=== PATIENT | male | born 1935 | race Caucasian/White ===

== ENCOUNTER → 2018-01-05 09:58 | Outpatient (CLI) | payer MEDICARE, OTHER, SELFPAY ==
[2018-01-05 10:53] LABS: Add Manual Diff / Slide Review NO; Basophils Percent Auto 0.3 % (0-2); Eosinophils Percent Auto 1.9 % (2-4); Hematocrit 43.8 % (41-53); Hemoglobin 14.4 g/dL (13.5-17.5); Lymphocytes Percent Auto 17.9 % (25-40); Mean Corpuscular Hemoglobin 30.9 PG (26-34); Mean Corpuscular Volume 93.8 fL (80-100); Monocytes Percent Auto 7.7 % (3-14); Neutrophils Absolute Auto 5800 /uL (3000-5900); Neutrophils Percent Auto 72.2 % (50-75); Platelet Count 226 X10^3/uL (150-400); Red Blood Cell Count 4.67 X10^6/uL (4.5-5.9); Red Cell Distribution Width 15.1 % (11.6-14.8); White Blood Cell Count 8.1 X10^3/uL (4.5-11.0)
[2018-01-05 11:15] LABS: Erythrocyte Sedimentation Rate 5 MM/HR (0-15)
[2018-01-05 11:18] LABS: C-Reactive Protein Quant 0.9 mg/dL (<1.0)
== END ==
PROVIDERS: PCP Family Medicine; Visit Provider Orthopaedic Surgery
DX: Z96.652 Presence of left artificial knee joint (principal)
CPT/HCPCS: 36415; 85025; 85651; 86140

== ENCOUNTER → 2018-01-15 10:25 | Outpatient (CLI) | payer MEDICARE, OTHER, SELFPAY | PROVIDERS: PCP Family Medicine; Visit Provider Orthopaedic Surgery | DX: M25.562 Pain in left knee (principal); Z53.9 Procedure and treatment not carried out, unspecified reason ==

== ENCOUNTER → 2018-01-21 08:51 | Outpatient (CLI) | payer MEDICARE, OTHER, SELFPAY ==
--- NOTE | 2018-01-21 | DI.NM.S_ITS ---
PROCEDURE: NM BONE 3 PHASE RADIOPHARMACEUTICAL: 21.2 mCi Tc-99m MDP IV. INDICATIONS: PAIN IN LEFT KNEE TECHNIQUE: Multiple bone scintigrams were obtained after intravenous injection of Tc-99m MDP, including flow, blood pool, and delayed images centered to the region of interest. COMPARISON: [facility], CR, XR KNEE ARTHRITIC SERIES LT, 06/23/2017, 14:51. [facility] [place], CR, XR KNEE ARTHRITIC SERIES LT, 04/07/2017, 12:58. [facility], CR, KNEE 1-2 VIEWS LEFT, 02/26/2017, 13:58. [facility], CR, XR KNEE ARTHRITIC SERIES LT, 12/26/2017, 13:31. FINDINGS: Photopenic defect related to left knee arthroplasty. Along the tibial tray component, and most prominently involving the medial aspect there is increased tracer activity seen on the immediate, blood pool and delayed phase imaging. Elsewhere in there is possible triple phase positive appearance involving the lateral aspect of the proximal tibial metaphysis although this is less conspicuous on the delayed phase imaging. IMPRESSION: Scintigraphic appearance raises the possibility of hardware loosening or infection in particular at the medial hardware-bone interface of the tibial component of the left knee arthroplasty. Please correlate clinically. In this area on comparison radiographs there appears to be slight progressive lucency at the hardware bone interface Dictated by: Sedrick Asencio M.D. on 01/21/2018 at 14:06 Approved by: Sedrick Asencio M.D. on 01/21/2018 at 14:16
== END ==
PROVIDERS: PCP Internal Medicine; Visit Provider Orthopaedic Surgery
DX: M25.562 Pain in left knee (principal); Z96.652 Presence of left artificial knee joint
CPT/HCPCS: 78315; A9503

== ENCOUNTER 2018-03-04 11:18 | Inpatient (IN) | payer MEDICARE, OTHER, SELFPAY ==
[2018-02-23 09:57] VITALS: BMI 33.3
[2018-03-04] VITALS (15 sets, daily range): BP systolic 103–169; BP diastolic 52–111; PULSE 73–104; RESP 12–20; TEMP 36.3–37.6; O2SAT 94–100; BMI 33.3
--- NOTE | 2018-03-04 11:35 | DI.RAD.S_ITS ---
PROCEDURE: XR KNEE LT 1TO2V INDICATIONS: post op films TECHNIQUE: 2 view(s) of the knee acquired. COMPARISON: [facility] [place], XR KNEE ARTHRITIC SERIES LT, 12/26/2017, 13:31. FINDINGS: Bones: Patient is status post knee joint arthroplasty. Hardware components are in expected positions. Visualized bony structures are intact. Soft tissues: Overlying postoperative changes are noted. IMPRESSION: Left total knee arthroplasty. Normal alignment established. Prior arthroplasty device removed. Dictated by: Delon Cage M.D. on 03/04/2018 at 19:45 Approved by: Delon Cage M.D. on 03/04/2018 at 19:46
[2018-03-04] MEDS: LACTATED RINGERS 1,000 ML 42 ML IV (12:24)
[2018-03-04] MEDS: ACETAMINOPHEN 325 MG TABLET 975 MG PO ×2 (12:24→22:55)
[2018-03-04] MEDS: PREGABALIN 75 MG CAPSULE PO (12:25)
[2018-03-04] MEDS: MELOXICAM 7.5 MG TABLET 15 MG PO (12:25)
[2018-03-04 12:43] LABS: Creatine Kinase 89 U/L (55-170)
[2018-03-04] MEDS: VANCOMYCIN 1,000 MG/200 ML FROZ.PIGGY 200 MG IV (12:46)
--- NOTE | 2018-03-04 12:53 | PM.PREOP ---
Pre-operative Note Interval Note History & Physical reviewed/Exam performed by Physician: Yes Changes to H&P: No
--- NOTE | 2018-03-04 12:54 | PM.OP.1 ---
Operative Date/Time/Diagnoses Date of procedure: 03/04/18 Time of procedure: 17:23 Pre-op diagnosis: Loosening of left total knee arthroplasty Post-op diagnosis: same Procedure & Clinicians Procedure: Revision left total knee arthroplasty Same procedure as scheduled: Yes Indications: The patient presents today for revision of left total knee arthroplasty. His initial knee was placed a little over 1 year ago. He started having pain about 3-4 months after surgery which has progressed over time. X-rays and bone scan show loosening of both the femoral and tibial components. Laboratory studies show no evidence of infection. The nature of the procedure including the risks and benefits, alternatives, postoperative course and expected outcome were discussed and all questions answered. Consent was obtained. Operative site confirmed and marked. Surgeon: Edwin Valdivia Tissue Specialist: Ari Allen Anesthesia Type: General, Spinal and Local Operative Notes Findings: There was no fluid within the knee upon initial exposure. No evidence of inflammation or infection. The patient's tibial component was clearly loose. I believe the femoral component was also loose based on preoperative studies but did not appear to be grossly loose when removed. I was able to remove both components with essentially no bone loss. The patellar component was also noted to be loose as some soft tissue was cleared around. There is still about 16 mm of patella so 2 more mm was cut and a new patellar components cemented into place. Closure Type: primary Specimen(s): other (Previous knee components and cultures x2.) Implants & Drains: [employer] [facility] revision system: 5 femur with 5 mm posterior medial and lateral augments and a 15 mm x 120 mm stem and 4 mm offset. For tibia with a 12 mm x 160 mm stem and 4 mm offset. 13 mm constrained polyethylene tray. 35 mm x 9 mm patella. Applied: implant(s) Estimated Blood Loss (mL): 50 Tourniquet time (min): 70 Procedure in detail: The patient was taken to the operative suite and placed under general anesthesia with a spinal. The patient was given prophylactic antibiotics prior to surgery. The patient was also given tranexamic acid, 1 g, just prior to surgery for postoperative hemostasis. The lateral knee was prepped and the joint injected with 20 mL of 1% Lidocaine with epinephrine. The knee was then prepped and draped in usual sterile fashion. The leg was exsanguinated with an Esmarch dressing and the tourniquet raised to 250 torr. A 20 cm anterior incision was made using a previous incision. Next a medial trivector arthrotomy was made. The extensor mechanism was marked to ensure accurate repair. There was no fluid in the knee joint. No evidence of inflammation or infection. Initial exposing dissection was carried out medially and laterally. The polyethylene tray was removed. The femoral component was removed 1st using osteotomes. I did not see evidence of gross loosening but the component was relatively easy to remove with no bone loss. Next the tibial component was removed also using osteotomes. The tibial component was clearly loose as very little effort was needed to remove the component. No significant bone loss. The tibial shaft was reamed up to a size 12 and the neck cut made on the proximal tibia removing about 4 more mm of bone. The patient had almost no bone loss. The tibia was then prepared for size for component using a 4 mm offset social science professor. Next the femoral shaft was reamed. I could not get the required depth with even the smallest Reamer for the desired stem. In reviewing his x-rays it looked like there was some subtle step-off from a previous fracture in the cortex significantly narrowed. It was decided to go with a 120 mm stem on the femur. Full femoral preparation was carried out for a size 5 femur. It was cut posteriorly for 5 mm augments both medially and laterally. Only a 1.5 mm fresh up cut was needed distally. The trials were placed in the knee range. There is a little increased medial laxity compared to laterally but overall the knee had good balance with a 13 mm constrained polyethylene tray. At this point some scar tissue was cleaned off the tibial component and the tibia was noted to be loose. The tibia was 16 mm thick so no other 2 mm could be removed. The tibia was prepared with 3 drill holes placed in a different area than the previous drill holes. The knee was then copiously irrigated with total of 6 L of orthopedic irrigation. The knee was also soaked with a dilute Betadine solution. The final components were placed with vacuum mixed antibiotic cement. The tibia was placed 1st without incident. As the femur was placed down was then noted that it did not seem to seat as far as the trial. Even with a large mallet the femur still seemed to be 1-2 mm proud. The trial component did have a very tight fit. At this point the cement had essentially hardened. When the knee was ranged and seemed to have the same balance in extension as a 2 with the trial. It was felt that this was acceptable amount of cement mantle as it would require essentially revision of the femoral component as the cement had dried by this point. The knee was held in extension and the patellar clamp until the cement was fully cured. Trial reduction was then performed and again a 13 mm constrained liner was selected. The patient came into full extension easily and flexed to 130? with good overall balance. Patellar tracking was excellent. The knee was held in extension and the patellar clamp until the cement had adequately cured. The knee was irrigated and inspected for any further debris. The knee was then irrigated with dilute Betadine solution. The extensor mechanism was closed with 5 interrupted #1 Vicryl sutures in 90 degrees of flexion. The joint was then injected with a combination of 1 g of tranexamic acid and 20 mL of quarter percent Marcaine with epinephrine. The subcutaneous tissue was closed with 2-0 Vicryl. The skin was closed with semaj and surgical adhesive. A Willie dressing and Marty wrap were then applied. The patient tolerated the procedure well and was returned to recovery room in good condition. Complications: none Condition: stable Disposition: PACU Plan for aftercare: Routine postoperative protocol for total knee arthroplasty. His furnace hand has recommended daily EKGs and troponin levels for the 1st 2 days after surgery. He will continue on IV vancomycin until cultures are clear.
[2018-03-04 12:57] LABS: Troponin I < 0.012 ng/mL (0.01-0.034)
--- NOTE | 2018-03-04 13:12 | SUR.OPER ---
Supine on padded OR bed. Pillow under head, arms secured on padded armboards <90 degree abduction. Safety belt across torso. Non-operative leg secured with tape over blanket over lower leg. Operative leg secured in DeMayo/Elijah positioner. Foam padded brace at thigh of operative leg.
[2018-03-04] MEDS: CLINDAMYCIN 900 MG/50 ML PIGGYBACK 50 MG IV (13:50)
[2018-03-04] MEDS: TRANEXAMIC ACID 1,000 MG VIAL 1000 MG INJ ×2 (14:33→14:36)
[2018-03-04] MEDS: BUPIVACAINE 0.5% W/ EPI (PF) 20 ML, BUPIVACAINE LIPOSOME 266 MG, SODIUM CHLORIDE 0.9% 2... INJ (14:35)
[2018-03-04] MEDS: ONDANSETRON 4 MG/2 ML INJ IV (19:30)
[2018-03-04 19:57] LABS: Estimated Glomerular Filt Rate 52.9 mL/min (>60)
[2018-03-04] MEDS: LACTATED RINGERS 1,000 ML 125 ML IV (20:35)
--- NOTE | 2018-03-04 20:55 | PC.NURSE ---
Addendum entered by Roseanne Morfin R.N. 03/05/18 00:09: 2230- immediately (less than 1 min) after admin all pt's medications, pt had 250mL emesis, clear yellow, without any pills in bag. Pt using I.S. since 194, and reaching [id number] level. Original Note: 1844- Pt arrived to room 230 via PACU via bed. A/O x3, left knee MUKUND drsg CDI, green light flashing, ice packs on knee, CMS-pedal pulses +, remains with numbness up to mid thigh, able to wiggle toes and ankle pumps. Pt had emesis 125 clear yellow liquid @ 1999, and again 100mL clear yellow emesis @ 2030mL. Pt's belongings were not brought up with pt, when PACU brought him up. Isaias Arevalo, RN coordinator retrieved them in PACU and brought them up pt's room. LR infusing to left wrist @ 125. Sating form 93-96% 2.5L nc, LS clear, denies SOB. Placed brief on pt for bladder inc. Ice chips and water at bedside. Call light in reach and bed alarm on.
[2018-03-04] MEDS: ROPINIROLE 0.25 MG TABLET PO (22:56)
[2018-03-04] MEDS: ATORVASTATIN 20 MG TABLET PO (22:56)
[2018-03-04] MEDS: METFORMIN HCL 500 MG TABLET 250 MG PO (22:56)
[2018-03-04] MEDS: ASPIRIN EC 81 MG TABLET PO (22:56)
[2018-03-04] MEDS: LORazepam 1 MG TABLET PO (22:56)
[2018-03-05] VITALS (8 sets, daily range): BP systolic 110–120; BP diastolic 53–86; PULSE 99–110; RESP 15–20; TEMP 36.5–37.2; O2SAT 90–98
[2018-03-05] MEDS: LACTATED RINGERS 1,000 ML 125 ML IV (04:26)
[2018-03-05] MEDS: VANCOMYCIN 1,000 MG/200 ML FROZ.PIGGY 200 MG IV (06:00)
[2018-03-05] MEDS: OXYCODONE IR 5 MG TABLET PO ×4 (06:14→15:45)
[2018-03-05] MEDS: PANTOPRAZOLE 20 MG TABLET PO (06:14)
--- NOTE | 2018-03-05 06:29 | PC.NURSE ---
pt unable to urinate. he does have the urge to go. 0630 bladder scan 295cc. medicated pt w/oxycodone 5mg. pt ambulated to the BSC 2pa. call light in reach. bed alarm active.
--- NOTE | 2018-03-05 09:14 | CM.DPC ---
Referral faxed to Jorge Szymanski
[2018-03-05] MEDS: ASPIRIN EC 81 MG TABLET PO ×2 (09:24→20:17)
[2018-03-05] MEDS: METFORMIN HCL 500 MG TABLET 250 MG PO (09:24)
[2018-03-05] MEDS: ALLOPURINOL 100 MG TABLET PO (09:24)
[2018-03-05] MEDS: ACETAMINOPHEN 325 MG TABLET 975 MG PO ×3 (09:26→20:17)
[2018-03-05] MEDS: ROPINIROLE 0.25 MG TABLET PO ×2 (09:30→20:16)
[2018-03-05 10:24] LABS: Hematocrit 37.2 % (41-53); Hemoglobin 12.1 g/dL (13.5-17.5)
[2018-03-05 10:35] LABS: Creatine Kinase 135 U/L (55-170)
[2018-03-05 10:50] LABS: CKMB % Relative Index 1.8 % (1.5-5.0)
--- NOTE | 2018-03-05 11:15 | PM.PNPO.1 ---
Subjective Date Patient Seen: 03/05/18 Time Patient Seen: 11:16 Interval history: Patient's pain is mild at rest. Patient notes more moderate pain with activity and movement of the left knee. Denies fever chills. No nausea vomiting. He denies any shortness of breath or chest pain. Exam Vital Signs (past 8 hours): - 03/05/18 03:30 03/05/18 08:29 Temperature 98.9 F 97.7 F Pulse Rate 100 H 104 H Respiratory Rate 15 20 Blood Pressure 118/69 114/57 L Pulse Oximetry 98 94 Oxygen Delivery Method Nasal Cannula Oxygen Flow Rate 0 Narrative Exam Narrative: Pleasant 82-year-old male resting comfortably in bed in no apparent distress. Willie dressing on and functioning. Dressing is clean, dry and intact. Neurovascular status is intact to the distal left lower extremity. Objective Labs Result Diagrams: 03/05/18 07:00 03/04/18 19:27 Labs: Laboratory Results - last 24 hr 03/04/18 03/04/18 03/05/18 11:35 19:27 07:00 Hgb 12.1 L Hct 37.2 L Creatinine 1.30 H Estimated GFR 52.9 L Total Creatine Kinase 89 CK-MB (CK-2) TNP CK-MB (CK-2) Rel Index TNP Troponin I < 0.012 03/05/18 07:00 Hgb Hct Creatinine Estimated GFR Total Creatine Kinase 135 CK-MB (CK-2) 2.40 H CK-MB (CK-2) Rel Index 1.8 Troponin I Assessment & Plan Post-op Postoperative Procedures Operation Date: 03/04/18 13:15 Actual Procedures Side Surgeon p Total Knee Arthroplasty Revision Left Edwin Valdivia MD Patient progressing as expected status post revision left total knee arthroplasty. Weightbearing as tolerated. Patient's gun mechanic is recommended serial EKG and troponins well in the hospital or next to 3 days. With patient's complex cardiac history and diabetes will have hospitalist consult on the patient to assist in medical management of this patient. Patient's is home but will not be able to assist with patient because her own medical issues. Likely discharge to correction facility in 2 days. Quality VTE Deep Vein Thrombosis/Pulmonary Embolism Present on Admission: No
--- NOTE | 2018-03-05 11:18 | P.PN_ITS ---
Subjective Date Patient Seen: 03/05/18 Time Patient Seen: 11:16 Interval history: Patient's pain is mild at rest. Patient notes more moderate pain with activity and movement of the left knee. Denies fever chills. No nausea vomiting. He denies any shortness of breath or chest pain. Exam Vital Signs (past 8 hours): - 03/05/18 03:30 03/05/18 08:29 Temperature 98.9 F 97.7 F Pulse Rate 100 H 104 H Respiratory Rate 15 20 Blood Pressure 118/69 114/57 L Pulse Oximetry 98 94 Oxygen Delivery Method Nasal Cannula Oxygen Flow Rate 0 Narrative Exam Narrative: Pleasant 82-year-old male resting comfortably in bed in no apparent distress. Willie dressing on and functioning. Dressing is clean, dry and intact. Neurovascular status is intact to the distal left lower extremity. Objective Labs Result Diagrams: 03/05/18 07:00 03/04/18 19:27 Labs: Laboratory Results - last 24 hr 03/04/18 03/04/18 03/05/18 11:35 19:27 07:00 Hgb 12.1 L Hct 37.2 L Creatinine 1.30 H Estimated GFR 52.9 L Total Creatine Kinase 89 CK-MB (CK-2) TNP CK-MB (CK-2) Rel Index TNP Troponin I < 0.012 03/05/18 07:00 Hgb Hct Creatinine Estimated GFR Total Creatine Kinase 135 CK-MB (CK-2) 2.40 H CK-MB (CK-2) Rel Index 1.8 Troponin I Assessment & Plan Post-op Postoperative Procedures Operation Date: 03/04/18 13:15 Actual Procedures Side Surgeon p Total Knee Arthroplasty Revision Left Edwin Valdivia MD Patient progressing as expected status post revision left total knee arthroplasty. Weightbearing as tolerated. Patient's financial investigator is recommended serial EKG and troponins well in the hospital or next to 3 days. With patient's complex cardiac history and diabetes will have hospitalist consult on the patient to assist in medical management of this patient. Patient's is home but will not be able to assist with patient because her own medical issues. Likely discharge to retirement facility in 2 days. Quality VTE Deep Vein Thrombosis/Pulmonary Embolism Present on Admission: No
[2018-03-05 11:33] LABS: Troponin I < 0.012 ng/mL (0.01-0.034)
[2018-03-05] MEDS: INSULIN ASPART 100 UNIT/ML INSULN PEN SUBCUT ×3 (11:44→22:12)
--- NOTE | 2018-03-05 12:09 | PT.IIE ---
Current Diagnoses Mechanical loosening of other internal prosthetic joint, initial encounter (03/04/18) Presence of left artificial knee joint (03/04/18) Surgery Performed Operation Date: 03/04/18 13:15 Actual Procedures p Total Knee Arthroplasty Revision(Left) - Edwin Valdivia MD Surgical History (Last Updated 02/23/18 @ 10:54 by Marjan Newman RN) History of arthroplasty of left knee (Acute 02/26/17) History of lumbar fusion (Acute ~2015) History of vasectomy (Acute) Hx of elbow surgery (Acute) Hx of hernia repair (Acute) Hx of left knee surgery (Acute) Status post cataract extraction of both eyes with insertion of intraocular lens (Acute) Medical History (Last Updated 02/23/18 @ 10:54 by Marjan Newman RN) Anal fissure (Acute) Anxiety (Acute) Asthma (Acute) CVA (cerebral vascular accident) (Acute) Depression (Acute) Difficulty balancing (Acute) Dizziness (Acute) Easy bruisability (Acute) Fragile skin (Acute) GERD (gastroesophageal reflux disease) (Acute) Gout (Acute) [place] (hard of hearing) (Acute) HTN (hypertension) (Acute) History of agent [place] exposure (Acute) History of fall (Acute) Hyperlipidemia (Acute) Lung abnormality (Acute) Memory difficulties (Acute) Myocardial infarction (Acute ~1980) Osteoarthritis (Acute) PTSD (post-traumatic stress disorder) (Acute) Parkinson's disease (Acute) Peripheral neuropathy (Acute) RLS (restless legs syndrome) (Acute) TIA (transient ischemic attack) (Acute) Urinary incontinence (Acute) Physical Therapy Inpatient Evaluation/Re-Eval M1 PT/OT-IP Prior Functional Status Start: 03/05/18 11:41 Freq: NEEDED Status: Active Protocol: Document 03/05/18 09:50 (Rec: 03/05/18 12:08 [email or web address]) Medical Review Prior Functional Status Medical History Reviewed Yes Diet/Fluid Consistency Regular Communication no deficits noted Mobility and Gait independent ambulator with quad cane at home and community Activities of Daily Living and IADL's Pt is independent for most ADLs and IADLs with quad cane, but he needs help from his for cooking gardening. Social History Household Members spouse Living Arrangements House Number of Floors (Floors) One Floor Number of Stairs To Enter/Railing? 1 ROXANNA Home Environment Standard Height Toilet Walk in Shower Tub/Shower Doors Ramp Home Equipment Quad Cane Manual Wheelchair Hand Held Shower Grab Bars Near Toilet Grab Bars In Shower Employment Status Retired Additional Social History Comment Pt lives with his in a one story home who is CG for the patient. She usually helps pt to cook and gardening work . Pt states his is independent for all ADLs and IADLs, but she does have chronic medical conditions such as OA and RA primarily on her hands. Pt reports he is planning to d/c [facility] for further rehab due to his 's ability for being CG after this surgery. M2 PT-IP Current Condition Start: 03/05/18 11:41 Freq: NEEDED Status: Active Protocol: Document 03/05/18 09:50 HH (Rec: 03/05/18 12:08 [email or web address]) Physical Therapy Current Condition Current Condition Evaluation Date 03/05/18 Treatment Diagnosis L revision TKA; difficulty in walking, generalized weakness Onset Date 03/04/18 Weight Bearing Status Weight Bearing Status Weight Bear as Tolerated M3 PT-IP Subjective Start: 03/05/18 11:41 Freq: NEEDED Status: Active Protocol: Document 03/05/18 09:50 HH (Rec: 03/05/18 12:08 [email or web address]) Subjective Physical Therapy Visit Type Type Initial Evaluation Visit Start Time 09:50 Visit Stop Time 10:30 Total Visit Minutes 40 Number of PIPELINE OPERATOR Visits 0 Physical Therapy Visit Comments Patient Comments I have knee pain at rest 2/10 , but 8/10 when i put weight on it. I've been getting OOB with the help from nursing staff but it was quite painful to walk around. Patient Goals to be d/c to [facility] for further rehab to use commode for toileting to amb 300 feet with FWW Therapy Pain Assessment Pain When Pain Assessed During Mobility Pain Present Pain Present Pain Reported Location Left Knee Intensity 5 Scale Used Numeric (1 - 10) Description Dull Pain Management Techniques Apply Cold Timing of Activity with Medications M4 PT-IP Mobility and Gait Start: 03/05/18 11:41 Freq: NEEDED Status: Active Protocol: Document 03/05/18 09:50 HH (Rec: 03/05/18 12:08 [email or web address]) PT-Bed Mobility Assessment Supine to Sit Supine to Sit Standby Assistance Bedrails Sit to Supine Sit to Supine Standby Assistance Bedrails Scooting Scooting to Edge of Bed Standby Assistance Scooting Up and Down in Bed Standby Assistance PT-Transfer Assessment Sit to and From Stand Sit to and from Stand Contact Guard Assistance Use of Upper Extremities Equipment Transfer Assistive Device Bed Rail Gait Belt Front Wheeled Walker Transfers Transfer Destination Bed Chair Transfer Technique Stand Step Pivot Transfer Ability Level of Assist Contact Guard Assistance Comments Mobility Comments Pt performed supine to sit towards EOB; forward scooting; lateral scooting with SBA and bed rails for push off. Pt requires CGA for sit to stand, stand step pivot transfer. Pt does need v.c. hand placements on chair during stand to sit. Overall, pt demonstrates safe transfer with the use FWW and bedrails without signs of LOB and acute distress. Gait Assessment Gait Gait Assistance Required: Contact Guard Assist Distance (Feet) 100 Assistive Devices Assistive Device Gait Belt Front Wheeled Walker Gait Deviations General Gait Pattern Antalgic Decreased Stride Length Decreased Feet Clearance Factors Limiting Gait Function Factors Limiting Gait Function Decreased Activity Tolerance Decreased Sensation Decreased Strength Limited Range of Motion Pain Comments Gait Comments Pt amb between EOB to next two patients room 50 feet x 2 in total with CGA and FWW. Pt demonstrates insufficient TKE during initial contact who also has a forefoot foot strike. Pt also presents mild antalgic gait on left side due to knee pain. Pt requires constant v.c. to faciltiate L TKE and heel strikes to reduced patellofemoral stress by utilizing posterior chain activation. Pt juani gait training well without signs of LOB and acute distress. PT-Balance Assessment Sitting Balance and Reactions Static Sitting Balance Ability Normal Dynamic Sitting Balance Ability Normal Standing Balance and Reactions Static Standing Balance Ability Good Dynamic Standing Balance Ability Good M5 PT-IP Objective Assessments Start: 03/05/18 11:41 Freq: NEEDED Status: Active Protocol: Document 03/05/18 09:50 (Rec: 03/05/18 12:08 [email or web address]) Orientation Orientation/Cognition Level of Alertness Alert Orientation Name Age Birthday Month Date Year Day of Week Place Situation Language Function Ability No Deficits Noted Safety Awareness Understands Safety Issues Memory Description No Deficits Noted Gross Range of Motion Upper Extremity ROM Assessment Within Functional Limits Lower Extremity ROM Assessment Right Impaired Impairments R knee flexion AROM 90 R knee extension - 5 degrees Strength Upper Extremity Strength Assessment Within Functional Limits Lower Extremity Strength Assessment Right Impaired Hip 4 Knee 3+ Ankle 4 Coordination Assessment Gross Coordination Gross Coordination WNL Sensation Assessment Sensation Gross Sensation Right LE Impaired Sensation Description Tingling M6 PT-IP Treatment Start: 03/05/18 11:41 Freq: NEEDED Status: Active Protocol: Document 03/05/18 09:50 HH (Rec: 03/05/18 12:08 HH [email or web address]) Physical Therapy Treatment Exercises Exercises Ankle Pumps Gluteal Sets Quad Sets Heel Slides Knee ROM Measurement 90 flexion, -5 extension Education Education Provided Precautions Weight Bearing Status Post-Op Packet Safety Other Treatments Other Treatment Performed standing L TKE with FWW M7 PT-IP Assessment and Plan Start: 03/05/18 11:41 Freq: NEEDED Status: Active Protocol: Document 03/05/18 09:50 HH (Rec: 03/05/18 12:08 [email or web address]) PT Summary Assessment and Plan Potential Rehabilitation Potential Good Status of Condition at Evaluation Evolving Summary Impairments Pain ROM Strength Balance Sensation Transfers Gait Activity Tolerance Assessment Summary Pt is a 82 yo pleasant male who had L TKA on 02/26/17. Pt reports his pain didnt go away due to loosening of femoral and tibial components per MD report. Pt decided to receive revision L TKA yesterday and is now WBAT. Upon assessment, pt presents diffculty in walking with decreased stride length and feet clearance. However, pt reports his pain went down to 5 throughout the tx session and he was able to amb up to 100 feet today. Pt expects to transfer to [facility] for further rehab due to his current condition and previous failed surgical hx. Pt will cont require skilled PT in at this point to stabilize his pain and address his functional goals prior to d/c. Goals Bed Mobility Goal Independent Transfer Goal Standby Assistance Gait Goal Standby Assistance Gait Distance 200 Days to Meet Goals 3 Frequency of Treatment Frequency Of Treatment Twice a Day Treatment Plan Physical Therapy Treatment Plan Transfer Training Gait Training Therapeutic Exercise Balance Retraining Post Op Education Discharge Planning Hot or Cold Pack Neuromuscular Re-ed Other Recommendations and Next Treatment L TKE, knee flexion as Focus tolerated gait training as tolerated, encourage L heel strikes and TKE Recommendations To Nursing Amount of Assist Needed 1 Person Assist Discharge Recommendations PT Discharge Recommendations SNF Rehab
--- NOTE | 2018-03-05 12:23 | CM.DANOTE ---
Addendum entered by FABIOLA Bolton 03/05/18 13:37: SNF/cont [facility] called and they will be able to accept patient when/if medically appropriate. Faxed [facility] to [facility]. 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 Yes Advance Directives on File Yes History Provided By Patient Medical Record Prior Living Arrangements House Household Members spouse Type of transporation used prior to Drives own vehicle admit Independent with ADL's Yes Is patient alert and oriented? Yes DME Already Rented / Owned Cane Patient/Family Preference Care Home Facility Comment Patient toured SNF/[facility] prior to surgery. Discharge Plan Care Home Facility Referrals Initiated Care Home If patient plan is SNF: Has PASSR been Yes completed? Inpatient Status as of 03/04/18 Comment IP date confirmed with UR. SNF/HH Preference [facility]. Patient had selected this facility prior to admission. Has Agency SNF been contacted Yes Whiteboard Updated in Patient Room with Yes name and ext. # of Barrel Loader And Cleaner Please Provide Date Initial DC 03/05/18 Assessment Was Performed Next Review Type Continued Stay Review Pre-Anesthesia Assessment Start: 02/23/18 09:57 Freq: Status: Complete Protocol: Document 02/23/18 09:57 CAB (Rec: 02/23/18 11:02 CAB [id number]) Pre-Anesthesia Assessment Patient Also Known As (AKA) Bill Patient Information Reviewed Via Phone Assessment Assessment Completed With Patient H&P Completed Within 30 Days Yes Lab Results CBC EKG Electrolytes Other Comment A1c Primary Care Provider Perfecto Hirsch Seen Specialist in Last 12 Months Yes Specialist Seen Senior Accountant Orthopedist Primary Language Tamazight Train Brake Operator Required No Height 168.91 cm Weight 95.254 kg Body Mass Index (BMI) 33.3 Hearing Ability Hard of Hearing Use of Hearing Aid Visual Assist Glasses Dentition Type Teeth, Natural Present Barriers to Learning Auditory Memory Other Aids No Hx Anesthesia Reactions No Hx Family Anesthesia Reaction No Hx Malignant Hyperthermia No Hx Blood Transfusions No Anesthesia Review Requested Yes: PAC Courtesy re: Comorbidities Tear Down Worker No alcohol intake never Smoking Status Former smoker Tobacco type pipe cigars how long ago did patient quit smoking Quit 1961, smoked approx 8 years Substance Use Type does not use Pain Present Pain Reported Musculoskeletal Symptoms Abnormal Gait Back Pain Difficulty Walking Joint Pain History of Falling (Recent or History of Yes ) Patient is completely paralyzed or No: Balance issues completely immobile Prosthesis or Orthotic Device Cane Mental Status Oriented to own ability Is patient on oxygen? No Does patient have CONWAY/SOB Yes: Asthma r/t hydrofluoric acid exposure/leak Hx Sleep Apnea No Currently Taking a Beta Kala No Can You Climb a Flight of Stairs Without Yes SOB Hx Chest Pain Yes: 12/15/17 @[facility]-recs to med recs to be scanned Hx SOB Yes: Asthma r/t hydrofluoric acid exposure/leak Anti-Coagulant Therapy Yes: Aspirin 325mg daily-pt will check w/PCP if needed to stop Has a Senior Accountant Yes: Dr. Elkins Cardiac Testing Yes: Nuc stress 01/14/18 Hx Pacemaker/ICD No Pacemaker Rep Required? No Cardiac Clearance Received Yes Comment Cardiac clearance/visit , Nuc stress to med recs to be scanned in Diet Type At Home Regular dysphagia Yes: r/t Parkinson's Genitourinary Symptoms Change in Urinary Stream Dribbling Bladder Pattern Frequency Incontinent Nocturia Urgency Urinary Catheter Present No Hx Urinary Self Catheterization No Diabetes Yes HgbA1C 7.7 Date 02/12/18 Hx Drug Resistant Organism No Presence of External or Internal Medical No Devices Have you traveled outside the [facility] States in the last 30 days? Marital Status Lives With spouse Prior Living Arrangements House Number of Floors (Floors) One Floor Number of Stairs To Enter/Railing? Ramp Support System Child/Children Spouse Does the Patient Have Assistance After Yes: Pt worried about Surgery being able to assist w/care Patient Discharge Plan Description Care Home Facility/Rehab Comment Pt wants to go to [facility] Feels Safe in Current Environment Yes Been Physically Hurt or Threatened By a No Person in Current Environment Do you have thoughts of harming yourself None or others? Are you currently considering suicide? No Do you have a plan to hurt yourself or No Plan others? Do You Have Any Spiritual Beliefs That No May Affect Your HC Choices? Do You Have Any Cultural Practices That No May Affect Your HC Choices? Spiritual Referral None Who Can We Speak to About Patient's Care Family, friends Identifying Code for Release of Patient Declines to issue Information Health Care Proxy/Next of Kin Tena () Henrietta (daughter ) Health Care Proxy Phone Number Tena: [phone] Henrietta: [phone] Emergency Contact Name Tena (), Henrietta ( daughter) Emergency Contact Phone Number Tena: [phone] Henrietta: [phone] Advance Directives? Yes Advance Directives on File Yes Power of Engine Manager Yes Power of Engine Manager Name Tena () Power of Engine Manager PAC Instructions Durable medical equipment Medications to take/avoid Nasal antibiotic No ETOH/petroleum product on skin DOS NPO Pre-surgical wash Sturdy shoes/comfortable clothes Do not bring valuables and remove jewelry PAC Comment Senior Accountant recommends daily EKGs and troponin immediate post-op and for [address] Valdivia's office notified
--- NOTE | 2018-03-05 15:34 | PT.IPTN ---
Current Diagnoses Mechanical loosening of other internal prosthetic joint, initial encounter (03/04/18) Presence of left artificial knee joint (03/04/18) Surgery Performed Operation Date: 03/04/18 13:15 Actual Procedures p Total Knee Arthroplasty Revision(Left) - Edwin Valdivia MD Physical Therapy Treatment Note M2 PT-IP Current Condition Start: 03/05/18 11:41 Freq: NEEDED Status: Active Protocol: Document 03/05/18 09:50 HH (Rec: 03/05/18 12:08 HH [id number]) Physical Therapy Current Condition Current Condition Evaluation Date 03/05/18 Treatment Diagnosis L revision TKA; difficulty in walking, generalized weakness Onset Date 03/04/18 Weight Bearing Status Weight Bearing Status Weight Bear as Tolerated M3 PT-IP Subjective Start: 03/05/18 11:41 Freq: NEEDED Status: Active Protocol: Document 03/05/18 14:56 DCW (Rec: 03/05/18 15:34 DCW [id number]) Subjective Physical Therapy Visit Type Type Treatment Note Visit Start Time 14:56 Visit Stop Time 15:23 Total Visit Minutes 27 Number of SULFUR CHLORIDE OPERATOR Visits 0 Physical Therapy Visit Comments Patient Comments Pt reports continued 2/10 pain at rest, 8/10 pain with ambulation, but it already feels better than it did before surgery. Therapy Pain Assessment Pain When Pain Assessed During Mobility Pain Present Pain Present Pain Reported Location Left Knee Intensity 7 Scale Used Numeric (1 - 10) Description Dull Pain Management Techniques Apply Cold Timing of Activity with Medications M4 PT-IP Mobility and Gait Start: 03/05/18 11:41 Freq: NEEDED Status: Active Protocol: Document 03/05/18 14:56 DCW (Rec: 03/05/18 15:34 DCW [id number]) PT-Bed Mobility Assessment Supine to Sit Supine to Sit Standby Assistance Bedrails Sit to Supine Sit to Supine Standby Assistance Bedrails Scooting Scooting to Edge of Bed Standby Assistance Scooting Up and Down in Bed Standby Assistance PT-Transfer Assessment Sit to and From Stand Sit to and from Stand Contact Guard Assistance Use of Upper Extremities Equipment Transfer Assistive Device Bed Rail Gait Belt Front Wheeled Walker Transfers Transfer Destination Bed Chair Transfer Technique Stand Step Pivot Transfer Ability Level of Assist Contact Guard Assistance Gait Assessment Gait Gait Assistance Required: Contact Guard Assist Distance (Feet) 85 Assistive Devices Assistive Device Gait Belt Front Wheeled Walker Gait Deviations General Gait Pattern Antalgic Decreased Stride Length Decreased Feet Clearance Factors Limiting Gait Function Factors Limiting Gait Function Decreased Activity Tolerance Decreased Sensation Decreased Strength Limited Range of Motion Pain Comments Gait Comments Pt ambulated from his bed into the hallway 40', turned around, walked to the bathroom in his room, urinated, and then returned to bed. M5 PT-IP Objective Assessments Start: 03/05/18 11:41 Freq: NEEDED Status: Active Protocol: Document 03/05/18 09:50 HH (Rec: 03/05/18 12:08 [id number]) Orientation Orientation/Cognition Level of Alertness Alert Orientation Name Age Birthday Month Date Year Day of Week Place Situation Language Function Ability No Deficits Noted Safety Awareness Understands Safety Issues Memory Description No Deficits Noted Gross Range of Motion Upper Extremity ROM Assessment Within Functional Limits Lower Extremity ROM Assessment Right Impaired Impairments R knee flexion AROM 90 R knee extension - 5 degrees Strength Upper Extremity Strength Assessment Within Functional Limits Lower Extremity Strength Assessment Right Impaired Hip 4 Knee 3+ Ankle 4 Coordination Assessment Gross Coordination Gross Coordination WNL Sensation Assessment Sensation Gross Sensation Right LE Impaired Sensation Description Tingling M6 PT-IP Treatment Start: 03/05/18 11:41 Freq: NEEDED Status: Active Protocol: Document 03/05/18 14:56 DCW (Rec: 03/05/18 15:34 [id number] [id number]) Physical Therapy Treatment Other Treatments Other Treatment Performed Standing TKE, LAQ M7 PT-IP Assessment and Plan Start: 03/05/18 11:41 Freq: NEEDED Status: Active Protocol: Document 03/05/18 14:56 DCW (Rec: 03/05/18 15:34 DC [id number]) PT Summary Assessment and Plan Summary Impairments Pain ROM Strength Balance Sensation Transfers Gait Activity Tolerance Assessment Summary Pt's gait began very stiff with small step length and heavy reliance on his UE for support. As he ambulated more, he tolerated increased weight bearing through his knee and increased his step length, although continued to use a step-to gait pattern and stopped his FWW between each step. Goals Bed Mobility Goal Independent Transfer Goal Standby Assistance Gait Goal Standby Assistance Gait Distance 200 Days to Meet Goals 3 Frequency of Treatment Frequency Of Treatment Twice a Day Treatment Plan Physical Therapy Treatment Plan Transfer Training Gait Training Therapeutic Exercise Balance Retraining Post Op Education Discharge Planning Hot or Cold Pack Neuromuscular Re-ed Other Recommendations and Next Treatment L TKE, knee flexion as Focus tolerated gait training as tolerated, encourage L heel strikes and TKE Recommendations To Nursing Amount of Assist Needed 1 Person Assist Discharge Recommendations PT Discharge Recommendations SNF Rehab
--- NOTE | 2018-03-05 16:39 | PM.CN ---
History of Present Illness Date Patient Seen: 03/05/18 Chief complaint: left knee joint 20[address] Reason for consult: Cardiac Risk Factor Evaluation Narrative: The patient is an 82-year-old male with a history of significant coronary disease who is status post left knee arthroplasty. Patient has a known history of coronary disease having undergone a cardiac catheterization in 2012. At that time it showed no significant coronary disease. He was recently evaluated at [facility] for chest pain in January. EKG and enzymes were negative at that time. He underwent a Lexiscan which showed negative EKG changes. However there was some mild abnormalities involving the inferior lateral wall. The patient was felt to be low risk in terms of cardiac evaluation for his procedure. The patient was seen by Dr. Derrick geiger from Cardiology. He recommended that the patient have daily EKGs and troponins postoperatively for 2 days after his surgery. Patient at this time reports his left knee pain has improved significantly. He has no shortness of breath or chest pain. He had some mild nausea earlier but no vomiting. He has had no fever chills or cough or runny nose. No vomiting blood or blood out of his bottom. He also reports no dysuria hematuria or pyuria overall patient feels things have improved since surgery as he was having significant left knee pain and unable to sleep for more than 3 hr a night for the past year. I am asked to assist with cardiac risk factor reduction in the setting of left knee surgery. [facility] Medical History Anal fissure (Acute) Anxiety (Acute) Asthma (Acute) CVA (cerebral vascular accident) (Acute) Depression (Acute) Difficulty balancing (Acute) Dizziness (Acute) Easy bruisability (Acute) Fragile skin (Acute) GERD (gastroesophageal reflux disease) (Acute) Gout (Acute) [place] (hard of hearing) (Acute) HTN (hypertension) (Acute) History of agent [place] exposure (Acute) History of fall (Acute) Hyperlipidemia (Acute) Lung abnormality (Acute) Memory difficulties (Acute) Myocardial infarction (Acute ~1980) Osteoarthritis (Acute) PTSD (post-traumatic stress disorder) (Acute) Parkinson's disease (Acute) Peripheral neuropathy (Acute) RLS (restless legs syndrome) (Acute) TIA (transient ischemic attack) (Acute) Urinary incontinence (Acute) Surgical History History of arthroplasty of left knee (Acute 02/26/17) History of lumbar fusion (Acute ~2016) History of vasectomy (Acute) Hx of elbow surgery (Acute) Hx of hernia repair (Acute) Hx of left knee surgery (Acute) Status post cataract extraction of both eyes with insertion of intraocular lens (Acute) Family History Father Diabetes mellitus Sister Cancer Social History household members: spouse Smoking Status: Former smoker alcohol intake: never Meds Home Medications Medication Instructions Recorded Confirmed Type LUTEIN EXTRACT/ZEAXANTHIN EXT 1 sgl PO Q DAY #0 05/02/11 03/04/18 History (Lutein 15 MG Softgel) Multivitamin, Minerals, and 1 tab PO Q DAY #0 05/02/11 03/04/18 History (#CENTRUM SILVER) cholecalciferol (vitamin D3) 1,000 iu PO Q DAY #0 05/02/11 03/04/18 History [Vitamin D3] flaxseed oil 1,000 mg PO Q DAY #0 05/02/11 03/04/18 History fluticasone-salmeterol [Advair 1 puff INH BID PRN #0 05/02/11 02/23/18 History Diskus] insulin aspart U-100 [Novolog See Label Instructions .ROUTE 05/02/11 03/04/18 History Flexpen U-100 Insulin] .COMPLEX #0 insulin glargine [Lantus Solostar 18 unit SQ HS #0 05/02/11 03/04/18 History U-100 Insulin] carboxymethylcellulose sodium 1 drp OPHTH BID #0 02/10/17 03/04/18 History [Refresh Tears] metformin [Glucophage] 250 mg PO BID #0 02/10/17 03/04/18 History acetaminophen [Tylenol] 325 mg PO PRN PRN 02/23/18 02/23/18 History albuterol sulfate 1 puff INHALATION Q4-6H PRN 02/23/18 02/23/18 History aspirin 325 mg PO DAILY 02/23/18 03/04/18 History atorvastatin [Lipitor] 20 mg PO BEDTIME 02/23/18 03/04/18 History latanoprost 1 drp EYE-BOTH BEDTIME 02/23/18 03/04/18 History lorazepam 1 mg PO BEDTIME 02/23/18 03/04/18 History omeprazole 20 mg PO DAILY 02/23/18 03/04/18 History ropinirole 0.25 mg PO BID 02/23/18 03/04/18 History telmisartan [Micardis] 80 mg PO BEDTIME 02/23/18 03/04/18 History allopurinol 1 tab PO DAILY 03/04/18 03/04/18 History magnesium 1 tab PO SEEINSTR 03/04/18 03/04/18 History Allergies Allergy/AdvReac Type Severity Reaction Status Date / Time Penicillins [PENICILLINS] Allergy Severe SWELLING Verified 03/04/18 12:03 Sulfa (Sulfonamide Allergy Severe REDNESS, Verified 03/04/18 12:03 Antibiotics) SWELLING, [SULFA (SULFONAMIDE PASSED ANTIBIOTICS)] OUT, Hallucinations Review of Systems Review of Systems All systems reviewed & are unremarkable except as noted in HPI and below Exam Vital Signs (past 8 hours): - 03/05/18 11:32 03/05/18 15:40 Temperature 98.9 F 98.4 F Pulse Rate 104 H 104 H Respiratory Rate 18 18 Blood Pressure 117/53 L 120/70 Pulse Oximetry 94 90 L Fraction of Inspired Oxygen 21 Oxygen Delivery Method Room Air Oxygen Flow Rate 0 Narrative Exam Narrative: Pleasant gentleman resting comfortably in no obvious distress HEENT: Normocephalic atraumatic, extraocular muscles are intact, oropharynx is clear, neck is supple Lungs: Clear to auscultation Cardiac exam: Regular rate and rhythm normal S1 and S2 Abdomen: Soft nontender nondistended without hepatosplenomegaly Extremity: Left knee with dressing in place, mild erythema, no warmth or redness Neuro exam: Nonfocal except right facial droop. Psychiatric exam: Patient is awake and alert has no hallucination or tics or twitches Objective Labs Result Diagrams: 03/05/18 07:00 03/04/18 19:27 Labs: Laboratory Results - last 24 hr 03/04/18 03/05/18 03/05/18 19:27 07:00 07:00 Hgb 12.1 L Hct 37.2 L Creatinine 1.30 H Estimated GFR 52.9 L Total Creatine Kinase 135 CK-MB (CK-2) 2.40 H CK-MB (CK-2) Rel Index 1.8 Troponin I < 0.012 Assessment & Plan (1) S/P total knee arthroplasty: Problem details: Further treatment evaluation per Orthopedics Current visit: No Status: Acute (2) Diabetes mellitus: Problem details: Patient will discontinue metformin in the hospital and will cover blood sugar with basal bolus insulin. Will adjust accordingly. Current visit: No Status: Acute (3) Diabetic neuropathy: Problem details: Continue usual home medications. Current visit: No Status: Acute (4) CAD (coronary artery disease): Problem details: Patient will have troponin and EKGs daily. Will continue him on his usual outpatient medical regimen. Current visit: Yes Status: Acute (5) PTSD (post-traumatic stress disorder): Problem details: No further therapy indicate Current visit: Yes Status: Acute (6) Hypertension: Problem details: Patient will continue on usual medications to include Micardis Current visit: Yes Status: Acute (7) Parkinson's disease (tremor, stiffness, slow motion, unstable posture): Problem details: No further treatment at this time Current visit: Yes Status: Acute (8) GERD (gastroesophageal reflux disease): Problem details: Continue home therapy Current visit: Yes Status: Acute (9) History of stroke: Problem details: No evidence of stroke at this time will continue aspirin Current visit: Yes Status: Acute (10) Anxiety: Current visit: Yes Status: Acute Plan: Assessment/Plan Narrative: Thank you very much for this consultation will continue to follow with you
[2018-03-05] MEDS: ATORVASTATIN 20 MG TABLET PO (20:16)
[2018-03-05] MEDS: TELMISARTAN 40 MG TABLET 80 MG PO (20:17)
[2018-03-05] MEDS: LORazepam 1 MG TABLET PO (20:21)
[2018-03-05] MEDS: INSULIN GLARGINE 100 UNIT/ML 3ML PEN 22 UNIT SUBCUT (22:12)
[2018-03-06] VITALS (7 sets, daily range): BP systolic 106–179; BP diastolic 57–84; PULSE 101–110; RESP 16–20; TEMP 36.7–37.3; O2SAT 90–95
[2018-03-06] MEDS: VANCOMYCIN 1,000 MG/200 ML FROZ.PIGGY 200 MG IV ×2 (00:29→18:35)
[2018-03-06] MEDS: OXYCODONE IR 5 MG TABLET PO ×3 (00:45→08:39)
[2018-03-06 05:51] LABS: Add Manual Diff / Slide Review NO; Basophils Percent Auto 0.3 % (0-2); Eosinophils Percent Auto 2.6 % (2-4); Hematocrit 37.1 % (41-53); Lymphocytes Percent Auto 7.5 % (25-40); Mean Corpuscular HGB Conc 32.4 % (30-36); Mean Corpuscular Hemoglobin 30.7 PG (26-34); Mean Corpuscular Volume 94.6 fL (80-100); Monocytes Percent Auto 11.1 % (3-14); Neutrophils Absolute Auto 10200 /uL (1500-7000); Neutrophils Percent Auto 78.5 % (50-75); Platelet Count 171 X10^3/uL (150-400); Red Blood Cell Count 3.92 X10^6/uL (4.5-5.9); Red Cell Distribution Width 14.5 % (11.6-14.8)
[2018-03-06 06:00] LABS: Creatine Kinase 199 U/L (55-170)
[2018-03-06 06:01] LABS: Alanine Aminotransferase 25 IU/L (21-72); Albumin Globulin Ratio 1.2 (1.0-2.8); Alkaline Phosphatase 83 U/L (38-126); Aspartate Aminotransferase 18 IU/L (17-59); BUN Creatinine Ratio 24.7 (6-22); Bilirubin Total 0.7 mg/dL (0.2-1.3); Blood Urea Nitrogen 37 mg/dL (9-20); Calcium 8.5 mg/dL (8.4-10.2); Carbon Dioxide 27 mmol/L (22-32); Chloride 101 mmol/L (98-107); Estimated Glomerular Filt Rate 44.8 mL/min (>60); Globulin 2.5 g/dL (1.7-4.1); Glucose 215 mg/dL (80-110); HEMOLYSIS < 15 (0-50); Potassium 4.6 mmol/L (3.4-5.1); Sodium 136 mmol/L (137-145); Total Protein 5.5 g/dL (6.3-8.2)
[2018-03-06 06:13] LABS: Troponin I 0.017 ng/mL (0.01-0.034)
[2018-03-06 06:15] LABS: CKMB % Relative Index 0.9 % (1.5-5.0); Creatine Kinase MB 1.77 ng/mL (<2.37)
[2018-03-06] MEDS: PANTOPRAZOLE 20 MG TABLET PO (06:17)
--- NOTE | 2018-03-06 07:46 | PM.PN.1 ---
Subjective Date Patient Seen: 03/06/18 Interval history: Drake Ott is an 82-year-old male with a past medical history significant for coronary artery disease with recent perfusion scan demonstrating mild inferior lateral wall perfusion defect who was admitted for left TKA revision. Hospital Medicine was consulted for medical management of CAD and chronic conditions. The patient is resting in bed comfortably and in no acute distress. He denies headache, shortness of breath, chest pain, abdominal pain, nausea, vomiting, fever, chills, dysuria, diarrhea or constipation. He reports his left knee pain is a +2/10 in severity and well controlled on pain medication. He is voiding without difficulty and passing flatus. He is up with physical therapy. Exam Vital Signs (past 8 hours): - 03/05/18 23:56 03/06/18 04:21 Temperature 98.3 F 98.8 F Pulse Rate 99 H 101 H Respiratory Rate 18 20 Blood Pressure 110/57 L 106/57 L Pulse Oximetry 95 Fraction of Inspired Oxygen 21 Oxygen Delivery Method Room Air Oxygen Flow Rate 0 Narrative Exam Narrative: General: Elderly gentleman lying in bed and in no o acute distress, well-developed, well-nourished, appropriately interactive HEENT: Normocephalic, atraumatic. External ears without defect. Pupils equal, round, and reactive to light. Anicteric sclerae, moist conjunctivae, and no lid lag. Neck: Supple with full range of motion. No jugular venous distension. No lymphadenopathy or thyromegaly. Cardiovascular: Regular rate and rhythm without murmurs, rubs, or gallops appreciated. Pulmonary: Clear to auscultation bilaterally without crackles, wheezes, or rhonchi. Normal respiratory effort with no use of accessory muscles. Abdomen: Bowel tones present. Soft, nontender, nondistended. No hepatosplenomegaly or masses appreciated. Extremities: No clubbing, cyanosis, or edema. Left knee with bandage in place c/d/i. Skin: Normal temperature, turgor, and texture; no rash, ulcers, or subcutaneous nodules appreciated. Neurological: Cranial nerves grossly intact. Psychiatric: Normal mood and affect. Alert and oriented to person, place, and time. Objective Labs Result Diagrams: 03/06/18 05:05 03/06/18 05:05 Labs: Laboratory Results - last 24 hr 03/05/18 03/05/1803/06/19 07:00 07:00 05:05 WBC RBC Hgb 12.1 L Hct 37.2 L MCV MCH MCHC RDW Plt Count Neut % (Auto) Lymph % (Auto) [place] % (Auto) Eos % (Auto) Baso % (Auto) Neut # (Auto) Sodium Potassium Chloride Carbon Dioxide BUN Creatinine Estimated GFR BUN/Creatinine Ratio Glucose Calcium Total Bilirubin AST ALT Alkaline Phosphatase Total Creatine Kinase 135 199 H CK-MB (CK-2) 2.40 H 1.77 CK-MB (CK-2) Rel Index 1.8 0.9 L Troponin I < 0.012 0.017 Total Protein Albumin Globulin Albumin/Globulin Ratio 03/06/18 03/06/18 05:05 05:05 WBC 13.0 H RBC 3.92 L Hgb 12.0 L Hct 37.1 L MCV 94.6 MCH 30.7 MCHC 32.4 RDW 14.5 Plt Count 171 Neut % (Auto) 78.5 H Lymph % (Auto) 7.5 L [place] % (Auto) 11.1 Eos % (Auto) 2.6 Baso % (Auto) 0.3 Neut # (Auto) 12961 H Sodium 136 L Potassium 4.6 Chloride 101 Carbon Dioxide 27 BUN 37 H Creatinine 1.50 H Estimated GFR 44.8 L BUN/Creatinine Ratio 24.7 H Glucose 215 H Calcium 8.5 Total Bilirubin 0.7 AST 18 ALT 25 Alkaline Phosphatase 83 Total Creatine Kinase CK-MB (CK-2) CK-MB (CK-2) Rel Index Troponin I Total Protein 5.5 L Albumin 3.0 L Globulin 2.5 Albumin/Globulin Ratio 1.2 Assessment & Plan Plan: Assessment/Plan Narrative: Drake Ott is an 82-year-old male with a past medical history significant for coronary artery disease with recent perfusion scan demonstrating mild inferior lateral wall perfusion defect who was admitted for left TKA revision. Hospital Medicine was consulted for medical management of CAD and chronic conditions. Postop day #2. 1. Osteoarthritis of left knee status post revision of total knee arthroplasty, present on admission. Active. -Further treatment evaluation per Orthopedics 2. Coronary artery disease, present on admission. Stable. -Patient recently had a perfusion scan which demonstrated mild reversible inferior lateral defect without intervention. -Cardiology recommended immediate post-op and additional 2 days postoperative EKG and troponin. Troponin negative to date and EKGs without change. -Continue to monitor electrolytes with potassium and magnesium daily. -Continue home cardiac medications. 3. Acute hypomagnesemia, unclear present on admission. Active. -Ordered magnesium sulfate 4 g IV x1. -Will continue to monitor magnesium level daily and replete as necessary. 4. Diabetes mellitus type 2, non-insulin using, chronic, present on admission. Stable. -Discontinued metformin while in the hospital. -Continue Lantus 22 units at bedtime and low-dose correctional scale insulin. 5. Chronic diabetic neuropathy, present on admission. Stable. -Not medically treated. Continue as needed pain medication. 6. PTSD , chronic, present on admission. Stable. -No further therapy indicated. 7. Hypertension, chronic, present on admission. Stable. -Continue home medication Telmisartan 80 mg at bedtime. 8. Parkinson's disease, chronic, present on admission. Stable. -Patient has present tremor, stiffness, slow motion, unstable posture. -No further treatment at this time. 9. GERD, chronic, present on admission. Stable. -Continue home omeprazole 20 mg daily. 10. History of stroke. -No evidence of stroke at this time will continue aspirin. 11. Anxiety, chronic, present on admission. -Continue lorazepam 1 mg at bedtime. 12. Gout, chronic, present on admission. Stable. -Continue allopurinol 100 mg daily. 13. Restless leg syndrome, present on admission. Stable. -Continue home ropinirole 0.25 mg twice daily. 14. Asthma, chronic, present on admission. Stable. -Continue albuterol and Advair inhalers. Thank you very much for this consultation will continue to follow with you. Quality VTE Deep Vein Thrombosis/Pulmonary Embolism Present on Admission: No
--- NOTE | 2018-03-06 07:54 | P.PN_ITS ---
Subjective Date Patient Seen: 03/06/18 Time Patient Seen: 07:45 Interval history: Patient is seen bedside status post left total knee revision for loose components by Dr. Valdivia postop day 2. Patient is doing well, he is having some pain. Oral medications help. He denies any numbness tingling shortness of breath chest pain or calf pain. Cultures have been negative. He has been on IV vancomycin since his surgery. Exam Vital Signs (past 8 hours): - 03/05/18 23:56 03/06/18 04:21 Temperature 98.3 F 98.8 F Pulse Rate 99 H 101 H Respiratory Rate 18 20 Blood Pressure 110/57 L 106/57 L Pulse Oximetry 95 Fraction of Inspired Oxygen 21 Oxygen Delivery Method Room Air Oxygen Flow Rate 0 Narrative Exam Narrative: Well-developed well-nourished no acute distress. Patient alert and oriented x3. Dressing is clean dry and intact. Minimal generalized swelling around the joint but no erythema. Calf is soft and compressible. Neurovascularly intact in this extremity. Objective Labs Result Diagrams: 03/06/18 05:05 03/06/18 05:05 Labs: Laboratory Results - last 24 hr 03/05/18 03/05/18 03/06/18 07:00 07:00 05:05 WBC RBC Hgb 12.1 L Hct 37.2 L MCV MCH MCHC RDW Plt Count Neut % (Auto) Lymph % (Auto) [place] % (Auto) Eos % (Auto) Baso % (Auto) Neut # (Auto) Sodium Potassium Chloride Carbon Dioxide BUN Creatinine Estimated GFR BUN/Creatinine Ratio Glucose Calcium Total Bilirubin AST ALT Alkaline Phosphatase Total Creatine Kinase 135 199 H CK-MB (CK-2) 2.40 H 1.77 CK-MB (CK-2) Rel Index 1.8 0.9 L Troponin I < 0.012 0.017 Total Protein Albumin Globulin Albumin/Globulin Ratio 03/06/18 03/06/18 05:05 05:05 WBC 13.0 H RBC 3.92 L Hgb 12.0 L Hct 37.1 L MCV 94.6 MCH 30.7 MCHC 32.4 RDW 14.5 Plt Count 171 Neut % (Auto) 78.5 H Lymph % (Auto) 7.5 L [place] % (Auto) 11.1 Eos % (Auto) 2.6 Baso % (Auto) 0.3 Neut # (Auto) 56411 H Sodium 136 L Potassium 4.6 Chloride 101 Carbon Dioxide 27 BUN 37 H Creatinine 1.50 H Estimated GFR 44.8 L BUN/Creatinine Ratio 24.7 H Glucose 215 H Calcium 8.5 Total Bilirubin 0.7 AST 18 ALT 25 Alkaline Phosphatase 83 Total Creatine Kinase CK-MB (CK-2) CK-MB (CK-2) Rel Index Troponin I Total Protein 5.5 L Albumin 3.0 L Globulin 2.5 Albumin/Globulin Ratio 1.2 Assessment & Plan Post-op Postoperative Procedures Operation Date: 03/04/18 13:15 Actual Procedures Side Surgeon p Total Knee Arthroplasty Revision Left Edwin Valdivia MD 1. Patient status post above procedure POD #2. Preliminary cultures are still negative. Per Dr. Valdivia, if final cultures are also negative he will not need to be discharged on antibiotics. Continue with physical therapy. Will add oxycodone 10 mg q3 prn severe pain. EKG and troponins are still negative for cardiac event. Hospitalist consulting for this. Probable discharge tomorrow to [facility]. [facility] VTE Deep Vein Thrombosis/Pulmonary Embolism Present on Admission: No
[2018-03-06 08:32] LABS: Magnesium 1.1 mg/dL (1.6-2.3)
[2018-03-06] MEDS: ASPIRIN EC 81 MG TABLET PO ×2 (08:37→20:22)
[2018-03-06] MEDS: ALLOPURINOL 100 MG TABLET PO (08:37)
[2018-03-06] MEDS: ACETAMINOPHEN 325 MG TABLET 975 MG PO ×3 (08:38→20:21)
[2018-03-06] MEDS: INSULIN ASPART 100 UNIT/ML INSULN PEN SUBCUT ×4 (08:38→20:25)
[2018-03-06] MEDS: ROPINIROLE 0.25 MG TABLET PO ×2 (08:38→20:23)
--- NOTE | 2018-03-06 09:46 | PT.IPTN ---
Current Diagnoses Type 2 diabetes mellitus with diabetic neuropathy, unspecified (03/04/18) Type 2 diabetes mellitus without complications (03/04/18) Anxiety disorder, unspecified (03/04/18) Post-traumatic stress disorder, unspecified (03/04/18) Parkinson's disease (03/04/18) Essential (primary) hypertension (03/04/18) Atherosclerotic heart disease of [place] coronary artery without angina pectoris (03/04/18) Gastro-esophageal reflux disease without esophagitis (03/04/18) Mechanical loosening of other internal prosthetic joint, initial encounter (03/04/18) Personal history of transient ischemic attack (TIA), and cerebral infarction without residual deficits (03/04/18) Presence of left artificial knee joint (03/04/18) Presence of unspecified artificial knee joint (03/04/18) Surgery Performed Operation Date: 03/04/18 13:15 Actual Procedures p Total Knee Arthroplasty Revision(Left) - Edwin Valdivia MD Physical Therapy Treatment Note M2 PT-IP Current Condition Start: 03/05/18 11:41 Freq: NEEDED Status: Active Protocol: Document 03/05/18 09:50 HH (Rec: 03/05/18 12:08 [email or web address]) Physical Therapy Current Condition Current Condition Evaluation Date 03/05/18 Treatment Diagnosis L revision TKA; difficulty in walking, generalized weakness Onset Date 03/04/18 Weight Bearing Status Weight Bearing Status Weight Bear as Tolerated M3 PT-IP Subjective Start: 03/05/18 11:41 Freq: NEEDED Status: Active Protocol: Document 03/06/18 09:38 SA (Rec: 03/06/18 09:46 SA [id number]) Subjective Physical Therapy Visit Type Type Treatment Note Visit Start Time 08:45 Visit Stop Time 09:05 Total Visit Minutes 20 Notes Pt sitting up in chair and agreeable to PT this AM. Number of STABBER Visits 1 Physical Therapy Visit Comments Patient Comments Pt reports increased pain today at rest and with movement. States he feels unsteady. Therapy Pain Assessment Pain When Pain Assessed During Mobility Pain Present Pain Present Pain Reported Location Left Knee Intensity 8 Scale Used Numeric (1 - 10) Description Dull Pain Management Techniques Apply Cold Modification of Treatment Re-positioning Timing of Activity with Medications M4 PT-IP Mobility and Gait Start: 03/05/18 11:41 Freq: NEEDED Status: Active Protocol: Document 03/06/18 09:38 SA (Rec: 03/06/18 09:46 SA [id number]) PT-Bed Mobility Assessment Sit to Supine Sit to Supine Minimal Assistance Bedrails Scooting Scooting to Edge of Bed Standby Assistance Scooting Up and Down in Bed Standby Assistance PT-Transfer Assessment Sit to and From Stand Sit to and from Stand Contact Guard Assistance 1 Person Assistance Use of Upper Extremities Equipment Transfer Assistive Device Gait Belt Front Wheeled Walker Transfers Transfer Destination Bed Transfer Technique Stand Step Pivot Transfer Ability Level of Assist Contact Guard Assistance Comments Mobility Comments Pt with Min A for clearing LEs over EOB with sit> supine. CGA for standing balance and transfers. Pt reports feeling as if his knee may buckle. Gait Assessment Gait Gait Assistance Required: Contact Guard Assist Distance (Feet) 15 Assistive Devices Assistive Device Gait Belt Front Wheeled Walker Gait Deviations General Gait Pattern Antalgic Decreased Stride Length Decreased Feet Clearance Factors Limiting Gait Function Factors Limiting Gait Function Decreased Activity Tolerance Decreased Sensation Decreased Strength Limited Range of Motion Pain Comments Gait Comments Short distance gait training in room, back to bed. Pt declined further ambualtion, feeling unsteady and a little nauseus. Pt limits WBing through LLE, received pain medication a few minutes before session. M5 PT-IP Objective Assessments Start: 03/05/18 11:41 Freq: NEEDED Status: Active Protocol: Document 03/05/18 09:50 (Rec: 03/05/18 12:08 [email or web address]) Orientation Orientation/Cognition Level of Alertness Alert Orientation Name Age Birthday Month Date Year Day of Week Place Situation Language Function Ability No Deficits Noted Safety Awareness Understands Safety Issues Memory Description No Deficits Noted Gross Range of Motion Upper Extremity ROM Assessment Within Functional Limits Lower Extremity ROM Assessment Right Impaired Impairments R knee flexion AROM 90 R knee extension - 5 degrees Strength Upper Extremity Strength Assessment Within Functional Limits Lower Extremity Strength Assessment Right Impaired Hip 4 Knee 3+ Ankle 4 Coordination Assessment Gross Coordination Gross Coordination WNL Sensation Assessment Sensation Gross Sensation Right LE Impaired Sensation Description Tingling M6 PT-IP Treatment Start: 03/05/18 11:41 Freq: NEEDED Status: Active Protocol: Document 03/06/18 09:38 SA (Rec: 03/06/18 09:46 SA [id number]) Physical Therapy Treatment Exercises Exercises Ankle Pumps Gluteal Sets Quad Sets Heel Slides Education Education Provided Precautions Weight Bearing Status Post-Op Packet Safety M7 PT-IP Assessment and Plan Start: 03/05/18 11:41 Freq: NEEDED Status: Active Protocol: Document 03/06/18 09:38 (Rec: 03/06/18 09:46 [id number]) PT Summary Assessment and Plan Summary Assessment Summary Pt relies heavily on UEs for support during gait and standing mobility. Limited WBing through LLE with limited correction with cues. Pt very guarded with increased knee pain today. Frequency of Treatment Frequency Of Treatment Twice a Day Treatment Plan Physical Therapy Treatment Plan Transfer Training Gait Training Therapeutic Exercise Balance Retraining Post Op Education Discharge Planning Hot or Cold Pack Neuromuscular Re-ed Other Recommendations and Next Treatment L TKE, knee flexion as Focus tolerated gait training as tolerated, encourage L heel strikes and TKE Recommendations To Nursing Amount of Assist Needed 1 Person Assist Discharge Recommendations PT Discharge Recommendations SNF Rehab
--- NOTE | 2018-03-06 15:15 | PT.IPTN ---
Current Diagnoses Type 2 diabetes mellitus with diabetic neuropathy, unspecified (03/04/18) Type 2 diabetes mellitus without complications (03/04/18) Anxiety disorder, unspecified (03/04/18) Post-traumatic stress disorder, unspecified (03/04/18) Parkinson's disease (03/04/18) Essential (primary) hypertension (03/04/18) Atherosclerotic heart disease of [place] coronary artery without angina pectoris (03/04/18) Gastro-esophageal reflux disease without esophagitis (03/04/18) Mechanical loosening of other internal prosthetic joint, initial encounter (03/04/18) Personal history of transient ischemic attack (TIA), and cerebral infarction without residual deficits (03/04/18) Presence of left artificial knee joint (03/04/18) Presence of unspecified artificial knee joint (03/04/18) Surgery Performed Operation Date: 03/04/18 13:15 Actual Procedures p Total Knee Arthroplasty Revision(Left) - Edwin Valdivia MD Physical Therapy Treatment Note M2 PT-IP Current Condition Start: 03/05/18 11:41 Freq: NEEDED Status: Active Protocol: Document 03/05/18 09:50 HH (Rec: 03/05/18 12:08 [email or web address]) Physical Therapy Current Condition Current Condition Evaluation Date 03/05/18 Treatment Diagnosis L revision TKA; difficulty in walking, generalized weakness Onset Date 03/04/18 Weight Bearing Status Weight Bearing Status Weight Bear as Tolerated M3 PT-IP Subjective Start: 03/05/18 11:41 Freq: NEEDED Status: Active Protocol: Document 03/06/18 15:08 SA (Rec: 03/06/18 15:15 SA [email or web address]) Subjective Physical Therapy Visit Type Type Treatment Note Visit Start Time 14:07 Visit Stop Time 14:32 Total Visit Minutes 25 Notes Pt in bed at start of session. Number of SERVICES DELIVERY DRIVER Visits 2 Physical Therapy Visit Comments Patient Comments Pt reports he feels a little better than this morning. Therapy Pain Assessment Pain When Pain Assessed During Mobility Pain Present Pain Present Pain Reported Location Left Knee Intensity 6 Scale Used Numeric (1 - 10) Pain Management Techniques Apply Cold Modification of Treatment Re-positioning Timing of Activity with Medications M4 PT-IP Mobility and Gait Start: 03/05/18 11:41 Freq: NEEDED Status: Active Protocol: Document 03/06/18 15:08 SA (Rec: 03/06/18 15:15 [id number]) PT-Bed Mobility Assessment Rolling Type of Rolling Roll to Left Level of Assist Standby Assistance Supine to Sit Supine to Sit Standby Assistance Bedrails Sit to Supine Sit to Supine Standby Assistance Scooting Scooting to Edge of Bed Standby Assistance Scooting Up and Down in Bed Standby Assistance PT-Transfer Assessment Sit to and From Stand Sit to and from Stand Contact Guard Assistance 1 Person Assistance Use of Upper Extremities Equipment Transfer Assistive Device Gait Belt Front Wheeled Walker Transfers Transfer Destination Bed Transfer Technique Stand Step Pivot Comments Mobility Comments Inital static standing for postural correction and to increase WBing through LLE. CGA for transfers and SBA for bed mobility. Gait Assessment Gait Gait Assistance Required: Contact Guard Assist Distance (Feet) 25 Assistive Devices Assistive Device Gait Belt Front Wheeled Walker Gait Deviations General Gait Pattern Antalgic Decreased Stride Length Decreased Feet Clearance Factors Limiting Gait Function Factors Limiting Gait Function Decreased Activity Tolerance Decreased Sensation Decreased Strength Limited Range of Motion Pain Comments Gait Comments Pt with antalgic gait, able to increased step length with cues but WBs heavily through UEs. Able to stand at toilet to urinate with no LOB. Stair Climbing Assessment Comments Stair Climbing Comments Unable, fatigued with short distance gait. M5 PT-IP Objective Assessments Start: 03/05/18 11:41 Freq: NEEDED Status: Active Protocol: Document 03/05/18 09:50 (Rec: 03/05/18 12:08 [email or web address]) Orientation Orientation/Cognition Level of Alertness Alert Orientation Name Age Birthday Month Date Year Day of Week Place Situation Language Function Ability No Deficits Noted Safety Awareness Understands Safety Issues Memory Description No Deficits Noted Gross Range of Motion Upper Extremity ROM Assessment Within Functional Limits Lower Extremity ROM Assessment Right Impaired Impairments R knee flexion AROM 90 R knee extension - 5 degrees Strength Upper Extremity Strength Assessment Within Functional Limits Lower Extremity Strength Assessment Right Impaired Hip 4 Knee 3+ Ankle 4 Coordination Assessment Gross Coordination Gross Coordination WNL Sensation Assessment Sensation Gross Sensation Right LE Impaired Sensation Description Tingling M6 PT-IP Treatment Start: 03/05/18 11:41 Freq: NEEDED Status: Active Protocol: Document 03/06/18 15:08 SA (Rec: 03/06/18 15:15 [id number]) Physical Therapy Treatment Exercises Exercises Ankle Pumps Gluteal Sets Quad Sets Heel Slides Education Education Provided Precautions Weight Bearing Status Post-Op Packet Safety Other Treatments Other Treatment Performed Standing TKE, LAQ M7 PT-IP Assessment and Plan Start: 03/05/18 11:41 Freq: NEEDED Status: Active Protocol: Document 03/06/18 15:08 (Rec: 03/06/18 15:15 [id number]) PT Summary Assessment and Plan Potential Rehabilitation Potential Good Status of Condition at Evaluation Evolving Summary Assessment Summary Pt with gradual improvement in mobility, pain still limiting factor. Plans to d/c to SNF tomorrow. Frequency of Treatment Frequency Of Treatment Twice a Day Treatment Plan Physical Therapy Treatment Plan Transfer Training Gait Training Therapeutic Exercise Balance Retraining Post Op Education Discharge Planning Hot or Cold Pack Neuromuscular Re-ed Other Recommendations and Next Treatment L TKE, knee flexion as Focus tolerated gait training as tolerated, encourage L heel strikes and TKE Recommendations To Nursing Amount of Assist Needed 1 Person Assist Discharge Recommendations PT Discharge Recommendations SNF Rehab
[2018-03-06] MEDS: MAGNESIUM SULFATE 4 GM/100 ML PIGGYBACK IV (19:37)
[2018-03-06] MEDS: LORazepam 1 MG TABLET PO (20:23)
[2018-03-06] MEDS: TELMISARTAN 40 MG TABLET 80 MG PO (20:23)
[2018-03-06] MEDS: ATORVASTATIN 20 MG TABLET PO (20:23)
[2018-03-06] MEDS: INSULIN GLARGINE 100 UNIT/ML 3ML PEN 22 UNIT SUBCUT (20:26)
[2018-03-07 03:57] VITALS: BP 143/82; PULSE 106; RESP 16; TEMP 36.6; O2SAT 95
[2018-03-07 05:04] LABS: Add Manual Diff / Slide Review NO; Basophils Percent Auto 0.7 % (0-2); Eosinophils Percent Auto 4.1 % (2-4); Hematocrit 34.9 % (41-53); Hemoglobin 11.5 g/dL (13.5-17.5); Lymphocytes Percent Auto 10.1 % (25-40); Mean Corpuscular HGB Conc 32.9 % (30-36); Mean Corpuscular Hemoglobin 30.9 PG (26-34); Mean Corpuscular Volume 93.9 fL (80-100); Monocytes Percent Auto 10.8 % (3-14); Neutrophils Absolute Auto 8000 /uL (1500-7000); Neutrophils Percent Auto 74.3 % (50-75); Platelet Count 172 X10^3/uL (150-400); Red Blood Cell Count 3.72 X10^6/uL (4.5-5.9); Red Cell Distribution Width 14.5 % (11.6-14.8); White Blood Cell Count 10.8 X10^3/uL (4.5-11.0)
[2018-03-07 05:16] LABS: Alanine Aminotransferase 27 IU/L (21-72); Albumin 3.2 g/dL (3.5-5.0); Albumin Globulin Ratio 1.1 (1.0-2.8); Alkaline Phosphatase 83 U/L (38-126); Aspartate Aminotransferase 18 IU/L (17-59); BUN Creatinine Ratio 20.8 (6-22); Bilirubin Total 0.6 mg/dL (0.2-1.3); Blood Urea Nitrogen 27 mg/dL (9-20); Carbon Dioxide 28 mmol/L (22-32); Chloride 105 mmol/L (98-107); Estimated Glomerular Filt Rate 52.9 mL/min (>60); Globulin 2.8 g/dL (1.7-4.1); Glucose 156 mg/dL (80-110); HEMOLYSIS < 15 (0-50); Magnesium 2.1 mg/dL (1.6-2.3); Potassium 4.3 mmol/L (3.4-5.1); Sodium 139 mmol/L (137-145)
[2018-03-07] MEDS: PANTOPRAZOLE 20 MG TABLET PO (06:27)
[2018-03-07 07:45] VITALS: BP 169/77; PULSE 113; RESP 18; TEMP 36.4; O2SAT 94
--- NOTE | 2018-03-07 08:07 | P.PN_ITS ---
Subjective Date Patient Seen: 03/07/18 Interval history: Drake Ott is an 82-year-old male with a past medical history significant for coronary artery disease with recent perfusion scan demonstrating mild inferior lateral wall perfusion defect who was admitted for left TKA revision. Hospital Medicine was consulted for medical management of CAD and chronic conditions. The patient is resting in bed comfortably and in no acute distress. He continues to report frequent hiccups for the last 4 days now. He also endorses mild nausea this morning which has resolved. He denies headache, shortness of breath, chest pain, abdominal pain, vomiting, fever, chills, dysuria, diarrhea or constipation. He continues to have left knee pain is a +1/10 in severity which is well controlled on pain medication. He is voiding without difficulty and passing flatus. He is up with physical therapy. Exam Vital Signs (past 8 hours): - 03/07/18 03:57 Temperature 97.9 F Pulse Rate 106 H Respiratory Rate 16 Blood Pressure 143/82 H Pulse Oximetry 95 Fraction of Inspired Oxygen 21 Oxygen Delivery Method Room Air Oxygen Flow Rate 0 Narrative Exam Narrative: General: Elderly gentleman lying in bed and in no o acute distress, well- developed, well-nourished, appropriately interactive. HEENT: Normocephalic, atraumatic. External ears without defect. Pupils equal, round, and reactive to light. Anicteric sclerae, moist conjunctivae, and no lid lag. Neck: Supple with full range of motion. No jugular venous distension. No lymphadenopathy or thyromegaly. Cardiovascular: Regular rate and rhythm without murmurs, rubs, or gallops appreciated. Pulmonary: Clear to auscultation bilaterally without crackles, wheezes, or rhonchi. Normal respiratory effort with no use of accessory muscles. Abdomen: Soft, nontender, nondistended, bowel sounds present. No hepatosplenomegaly or masses appreciated. Extremities: No clubbing, cyanosis, or edema. Left knee with bandage in place c/ d/i. Skin: Normal temperature, turgor, and texture; no rash, ulcers, or subcutaneous nodules appreciated. Neurological: Cranial nerves grossly intact. Psychiatric: Normal mood and affect. Alert and oriented to person, place, and time. Objective Labs Result Diagrams: 03/07/18 04:55 03/07/18 04:55 Labs: Laboratory Results - last 24 hr 03/06/18 03/07/18 03/07/18 04:05 04:55 04:55 WBC 10.8 RBC 3.72 L Hgb 11.5 L Hct 34.9 L MCV 93.9 MCH 30.9 MCHC 32.9 RDW 14.5 Plt Count 172 Neut % (Auto) 74.3 Lymph % (Auto) 10.1 L [place] % (Auto) 10.8 Eos % (Auto) 4.1 H Baso % (Auto) 0.7 Neut # (Auto) 8000 H Sodium 139 Potassium 4.3 Chloride 105 Carbon Dioxide 28 BUN 27 H Creatinine 1.30 H Estimated GFR 52.9 L BUN/Creatinine Ratio 20.8 Glucose 156 H Calcium 9.0 Magnesium 1.1 L 2.1 Total Bilirubin 0.6 AST 18 ALT 27 Alkaline Phosphatase 83 Total Protein 6.0 L Albumin 3.2 L Globulin 2.8 Albumin/Globulin Ratio 1.1 Assessment & Plan Plan: Assessment/Plan Narrative: Drake Ott is an 82-year-old male with a past medical history significant for coronary artery disease with recent perfusion scan demonstrating mild inferior lateral wall perfusion defect who was admitted for left TKA revision. Hospital Medicine was consulted for medical management of CAD and chronic conditions. Postop day #2. 1. 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 Active. -Further treatment evaluation per Orthopedics 2. Coronary artery disease, present on admission. Stable. -Patient recently had a perfusion scan which demonstrated mild reversible inferior lateral defect without intervention. -Cardiology recommended immediate post-op and additional 2 days postoperative EKG and troponin. Troponin within normal limits to date and EKGs without change. -Continue to monitor electrolytes with potassium and magnesium daily. -Continue home cardiac medications. 3. Acute hypomagnesemia, unclear present on admission. Resolved. -Ordered magnesium sulfate 4 g IV x1. -Will continue to monitor magnesium level daily and replete as necessary. Magnesium level 2.1 today. 4. Diabetes mellitus type 2, non-insulin using, chronic, present on admission. Stable. -Discontinued metformin while in the hospital. -Continue Lantus 22 units at bedtime and low-dose correctional scale insulin. 5. Chronic diabetic neuropathy, present on admission. Stable. -Not medically treated. Continue as needed pain medication. 6. PTSD , chronic, present on admission. Stable. -No further therapy indicated. 7. Hypertension, chronic, present on admission. Stable. -Continue home medication Telmisartan 80 mg at bedtime. 8. Parkinson's disease, chronic, present on admission. Stable. -Patient has present tremor, stiffness, slow motion, unstable posture. -No further treatment at this time. 9. GERD, chronic, present on admission. Stable. -Continue home omeprazole 20 mg daily. 10. History of stroke. -No evidence of stroke at this time will continue aspirin. 11. Anxiety, chronic, present on admission. -Continue lorazepam 1 mg at bedtime. 12. Gout, chronic, present on admission. Stable. -Continue allopurinol 100 mg daily. 13. Restless leg syndrome, present on admission. Stable. -Continue home ropinirole 0.25 mg twice daily. 14. Asthma, chronic, present on admission. Stable. -Continue albuterol and Advair inhalers. Thank you very much for this consultation. Will sign off at this time but please do not hesitate to call with further questions or assistance. Quality VTE Deep Vein Thrombosis/Pulmonary Embolism Present on Admission: No
--- NOTE | 2018-03-07 08:27 | PM.DS.1 ---
History of Present Illness Date Patient Seen: 03/07/18 Chief complaint: left knee joint [id number] Narrative: Patient seen bedside status post left total knee revision postop day 3. Patient is doing well, although he is complaining of pain with ambulation. He states that taking Tylenol seems to help. His cultures came back negative and his vancomycin has been discontinued. He denies chest pain shortness of breath or calf pain. He is ready for discharge to [facility] today. Discharge Providers Date of admission: 03/04/18 11:18 Primary care physician: Perfecto Hirsch MD Consults: 03/04/18 19:12 Consult to Discharge Planning Routine Comment: Consult to Physical Therapy Evaluate & Treat Comment: Physician Instructions: postop TKA protocol Consult to Respiratory Therapy Evaluate & Treat Comment: Physician Instructions: Evaluate and treat Discharge provider: Heather Martel PA-C Discharge Date: 03/07/18 Summary Discharge Diagnosis: 1. History of left total knee replacement 2. Mechanical loosening of prosthetic knee Hospital Course: Patient was admitted to the hospital status post left total knee revision on 03/04/[address] Valdivia. Patient tolerated the procedure well no major complications. Cultures were taken intraoperatively and followed to ensure that initial prosthesis failure was not secondary to infection. Patient was transitioned to the acute care floor and placed on the standard knee replacement pathway protocol. Patient was seen by Physical therapy and recommended for discharge to a subacute rehab facility. Final cultures from the knee came back negative for any bacteria. Patient was stable and ready for discharge to [facility] on 03/07/2018. Status at Discharge Cognitive/behavioral status at discharge: Alert oriented x3 Functional status at discharge: uses cane/walker Overall status at discharge: patient is progressing back to baseline Time Spent with Patient Less than 30 minutes Exam Vital Signs (past 8 hours): - 03/07/18 03:57 Temperature 97.9 F Pulse Rate 106 H Respiratory Rate 16 Blood Pressure 143/82 H Pulse Oximetry 95 Fraction of Inspired Oxygen 21 Oxygen Delivery Method Room Air Oxygen Flow Rate 0 Narrative Exam Narrative: Well-developed well-nourished no acute distress alert oriented x3. Mukund dressing on left knee is clean dry and intact. Minimal generalized swelling around the joint with no erythema. Calf is soft and compressible. Full range of motion of the ankle and foot. Neurovascularly intact in this extremity. Objective Labs Result Diagrams: 03/07/18 04:55 03/07/18 04:55 Labs: Laboratory Results - last 24 hr 03/06/18 03/07/18 03/07/18 04:05 04:55 04:55 WBC 10.8 RBC 3.72 L Hgb 11.5 L Hct 34.9 L MCV 93.9 MCH 30.9 MCHC 32.9 RDW 14.5 Plt Count 172 Neut % (Auto) 74.3 Lymph % (Auto) 10.1 L [place] % (Auto) 10.8 Eos % (Auto) 4.1 H Baso % (Auto) 0.7 Neut # (Auto) 8000 H Sodium 139 Potassium 4.3 Chloride 105 Carbon Dioxide 28 BUN 27 H Creatinine 1.30 H Estimated GFR 52.9 L BUN/Creatinine Ratio 20.8 Glucose 156 H Calcium 9.0 Magnesium 1.1 L 2.1 Total Bilirubin 0.6 AST 18 ALT 27 Alkaline Phosphatase 83 Total Protein 6.0 L Albumin 3.2 L Globulin 2.8 Albumin/Globulin Ratio 1.1 Discharge Plan Discharge Plan Patient Disposition: SNF Transfer to: [facility] Under care of provider: Facility provider I certify the postop hospital detention care is medically necessary on a continuing basis for any conditions for which he/ she received care during this hospitalization.: Yes The receiving facility has agreed to accept transfer and provide medical treatment.: Yes Discharge Med Rec/Prescriptions Prescriptions: New latanoprost [Xalatan] 0.005 % Drops 1 drops EYE-BOTH BEDTIME Qty: 0 RF: 0 acetaminophen 325 mg Tablet 975 mg PO TID Qty: 0 RF: 0 ibuprofen 600 mg Tablet 600 mg PO Q6HR PRN (Reason: As Needed For Fever/Mild Pain) Qty: 0 RF: 0 oxycodone 5 mg Tablet 5 mg PO Q3HR PRN (Reason: Pain, Moderate (4-6)) Qty: 15 RF: 0 Continue fluticasone-salmeterol [Advair Diskus] 250 MCG/50 MCG blister with device 1 puff INH BID PRN (Reason: Asthma) Qty: 0 RF: 0 Multivitamin, Minerals, and (#CENTRUM SILVER) 1 tab PO Q DAY Qty: 0 RF: 0 LUTEIN EXTRACT/ZEAXANTHIN EXT (Lutein 15 MG Softgel) 1 sgl PO Q DAY Qty: 0 RF: 0 cholecalciferol (vitamin D3) [Vitamin D3] 1,000 UNIT tablet 1,000 iu PO Q DAY Qty: 0 RF: 0 insulin glargine [Lantus Solostar U-100 Insulin] 100 UNIT/1 ML insulin pen 18 unit SQ HS Qty: 0 RF: 0 insulin aspart U-100 [Novolog Flexpen U-100 Insulin] 100 UNIT/1 ML insulin pen See Label Instructions .ROUTE .COMPLEX Qty: 0 RF: 0 carboxymethylcellulose sodium [Refresh Tears] 15 ML drops 1 drp OPHTH BID Qty: 0 RF: 0 metformin [Glucophage] 500 MG tablet 250 mg PO BID Qty: 0 RF: 0 aspirin 325 mg Tablet 325 mg PO DAILY RF: 0 ropinirole 0.25 mg Tablet 0.25 mg PO BID RF: 0 albuterol sulfate 90 mcg/actuation Hfa Aerosol Inhaler 1 puff INHALATION Q4-6H PRN (Reason: Asthma) RF: 0 latanoprost 0.005 % Drops 1 drp EYE-BOTH BEDTIME RF: 0 atorvastatin [Lipitor] 20 mg Tablet 20 mg PO BEDTIME RF: 0 telmisartan [Micardis] 80 mg Tablet 80 mg PO BEDTIME RF: 0 omeprazole 20 mg Capsule,Delayed Release(Dr/Ec) 20 mg PO DAILY RF: 0 lorazepam 1 mg Tablet 1 mg PO BEDTIME RF: 0 allopurinol 100 mg tablet 1 tab PO DAILY RF: 0 magnesium 250 mg Tablet 1 tab PO SEEINSTR RF: 0 Discontinued flaxseed oil 1,000 mg Capsule 1,000 mg PO Q DAY Qty: 0 RF: 0 acetaminophen [Tylenol] 325 mg Capsule 325 mg PO PRN PRN (Reason: pain) RF: 0 Follow up/Referrals: Edwin Valdivia MD [Physician] - (Follow up 03/17/18 at 3:30 pm with Sergio Torres PA-C in the [employer] office ) Perfecto Hirsch MD [Primary Care Provider] - Discharge Health Status Precautions: [place] Provider Discharge Instructions Diet: Carb-consistent/Diabetic Activity: Weightbearing as tolerated, use walker until cleared by PT Cold/Heat Therapy: Apply ice 20 minutes at a time to affected area at least hourly while awake. Skin/Wound/Dressing Care Report to your healthcare provider any signs of infection, such as:: chills, fever, night sweats, increased pain, unusual drainage and unusual redness Dressing: Keep dressing clean, dry, and intact. May shower with dressing in place but no soaking. Remove MUKUND and replaced with standard dressing 7 days post-op. [facility] Reason for rehabilitation: Post-operative therapy Rehab type: Physical therapy and Occupational therapy Visit Report/Discharge Packet Instructions: DI for Knee Replacement Discharge Data Primary Care Provider: Perfecto iHrsch Attending Provider: Edwin Valdivia Admit Date/Time: 03/04/18 11:18 Quality VTE Deep Vein Thrombosis/Pulmonary Embolism Present on Admission: No
[2018-03-07 08:32] LABS: Troponin I 0.017 ng/mL (0.01-0.034)
[2018-03-07] MEDS: INSULIN ASPART 100 UNIT/ML INSULN PEN SUBCUT ×2 (09:13→11:59)
[2018-03-07] MEDS: ACETAMINOPHEN 325 MG TABLET 975 MG PO (09:18)
[2018-03-07] MEDS: ALLOPURINOL 100 MG TABLET PO (09:18)
[2018-03-07] MEDS: ROPINIROLE 0.25 MG TABLET PO (09:18)
[2018-03-07] MEDS: ASPIRIN EC 81 MG TABLET PO (09:18)
--- NOTE | 2018-03-07 09:53 | PT.IPTN ---
Current Diagnoses Type 2 diabetes mellitus with diabetic neuropathy, unspecified (03/04/18) Type 2 diabetes mellitus without complications (03/04/18) Anxiety disorder, unspecified (03/04/18) Post-traumatic stress disorder, unspecified (03/04/18) Parkinson's disease (03/04/18) Essential (primary) hypertension (03/04/18) Atherosclerotic heart disease of [place] coronary artery without angina pectoris (03/04/18) Gastro-esophageal reflux disease without esophagitis (03/04/18) Mechanical loosening of other internal prosthetic joint, initial encounter (03/04/18) Personal history of transient ischemic attack (TIA), and cerebral infarction without residual deficits (03/04/18) Presence of left artificial knee joint (03/04/18) Presence of unspecified artificial knee joint (03/04/18) Surgery Performed Operation Date: 03/04/18 13:15 Actual Procedures p Total Knee Arthroplasty Revision(Left) - Edwin Valdivia MD Physical Therapy Treatment Note M2 PT-IP Current Condition Start: 03/05/18 11:41 Freq: NEEDED Status: Active Protocol: Document 03/07/18 09:53 RCC (Rec: 03/07/18 09:58 RCC [id number]) Physical Therapy Current Condition Current Condition Evaluation Date 03/05/18 Treatment Diagnosis L TKA revision Weight Bearing Status Weight Bearing Status Weight Bear as Tolerated M3 PT-IP Subjective Start: 03/05/18 11:41 Freq: NEEDED Status: Active Protocol: Document 03/07/18 09:53 RCC (Rec: 03/07/18 09:58 RCC [id number]) Subjective Physical Therapy Visit Type Type Treatment Note Visit Start Time 10:34 Visit Stop Time 09:53 Total Visit Minutes 19 Number of BUSINESS TECHNOLOGY PROFESSOR Visits 0 Physical Therapy Visit Comments Patient Comments Pt states that he is doing okay pain is still present. Therapy Pain Assessment Pain When Pain Assessed At Rest Pain Present Pain Present Pain Reported Location Left Knee Intensity 2 Scale Used Numeric (1 - 10) M4 PT-IP Mobility and Gait Start: 03/05/18 11:41 Freq: NEEDED Status: Active Protocol: Document 03/07/18 09:53 RCC (Rec: 03/07/18 09:58 RCC [id number]) PT-Bed Mobility Assessment Supine to Sit Supine to Sit Contact Guard Assistance Sit to Supine Sit to Supine Standby Assistance Scooting Scooting to Edge of Bed Standby Assistance PT-Transfer Assessment Sit to and From Stand Sit to and from Stand Contact Guard Assistance Equipment Transfer Assistive Device Gait Belt Front Wheeled Walker Transfers Transfer Destination Bed Transfer Technique Stand Step Pivot Transfer Ability Level of Assist Contact Guard Assistance Gait Assessment Gait Gait Assistance Required: Contact Guard Assist 1 Person Assist Distance (Feet) 50 Assistive Devices Assistive Device Gait Belt Front Wheeled Walker Gait Deviations General Gait Pattern Antalgic Decreased Stride Length Decreased Feet Clearance Flexed Trunk Step-to Gait Factors Limiting Gait Function Factors Limiting Gait Function Decreased Activity Tolerance Decreased Strength Limited Range of Motion Pain Poor Balance M5 PT-IP Objective Assessments Start: 03/05/18 11:41 Freq: NEEDED Status: Active Protocol: Document 03/05/18 09:50 (Rec: 03/05/18 12:08 [id number]) Orientation Orientation/Cognition Level of Alertness Alert Orientation Name Age Birthday Month Date Year Day of Week Place Situation Language Function Ability No Deficits Noted Safety Awareness Understands Safety Issues Memory Description No Deficits Noted Gross Range of Motion Upper Extremity ROM Assessment Within Functional Limits Lower Extremity ROM Assessment Right Impaired Impairments R knee flexion AROM 90 R knee extension - 5 degrees Strength Upper Extremity Strength Assessment Within Functional Limits Lower Extremity Strength Assessment Right Impaired Hip 4 Knee 3+ Ankle 4 Coordination Assessment Gross Coordination Gross Coordination WNL Sensation Assessment Sensation Gross Sensation Right LE Impaired Sensation Description Tingling M6 PT-IP Treatment Start: 03/05/18 11:41 Freq: NEEDED Status: Active Protocol: Document 03/07/18 09:53 RCC (Rec: 03/07/18 09:58 RCC [id number]) Physical Therapy Treatment Exercises Exercises Quad Sets Seated Knee Flexion/Extension Knee ROM Measurement 15-95 M7 PT-IP Assessment and Plan Start: 03/05/18 11:41 Freq: NEEDED Status: Active Protocol: Document 03/07/18 09:53 RCC (Rec: 03/07/18 09:58 RCC [id number]) PT Summary Assessment and Plan Summary Assessment Summary POD #3 L TKA revision. Pt with increased pain in WB today, step-to pattern until near end of gait distance when able to clear the R foot x3 past the L toes. Pt with stiffeness, limited in extension > flexion , but able to decrease lack of extension to 8 degrees after quad sets. Pt had one episode of posterior loss of balance, but able to maintain upright with close CGA. Pt is not safe to return to home environment at this time, and is a strong candidate for SNF rehabilitation to progress his functional independence, gait , standing balance, strength, and ROM. Goals Bed Mobility Goal Independent Transfer Goal Standby Assistance Gait Goal Standby Assistance Gait Distance 200 Days to Meet Goals 3 Frequency of Treatment Frequency Of Treatment Twice a Day Treatment Plan Other Recommendations and Next Treatment prog. gait, cont. TKA Focus exercises. Recommendations To Nursing Amount of Assist Needed 1 Person Assist Discharge Recommendations PT Discharge Recommendations SNF Rehab
--- NOTE | 2018-03-07 10:45 | CM.DPNOTE ---
DC Note: DC order to SNF; [facility]. Pt remains agreeable, he requests this PHOTONICS ENGINEERING TECHNOLOGIST contact spouse Tena w/ [facility]. Admin assist Bhupendra faxed the completed DC ppk to Марина at [facility] today and w/c van was arranged for a 1200 pickle pumper. Pt/spouse and RN were updated. P: DC to [facility] via w/c van today. FABIOLA Domingo
--- NOTE | 2018-03-07 13:20 | PC.NURSE ---
Discharge pt states pain controlled with scheduled tylenol. Pt states he took all belongings with him. PIV removed prior to d/c. Packet sent with pt/driver's license examiner to [facility]. Attempted to call [facility] for report, awaiting call back. Pt left around 1245 with transporter in w/c.
--- NOTE | 2018-03-08 10:46 | PC.NURSE ---
EYEDROPS: confirmed with pharmacy, eddi to send eyedrops by mail to [facility] without refridgeration. eye drops packaged, addressed and placed in outgoing mail. [facility] notified by phone.
--- NOTE | 2018-03-08 11:03 | PC.NURSE ---
Patient was discharged to [facility] on 03/07/18. Eye drops left behind. [facility] [place] [facility]. [facility] [place] [facility] to notify nursing staff about the patients eye drops.
== END 2018-03-07 12:50 | DRG 467 ==
PROVIDERS: Internal Medicine; Physician Assistant Medical; Physician Assistant Surgical; Admitting Provider Orthopaedic Surgery; PCP Internal Medicine; Visit Provider Orthopaedic Surgery
PROC: 0SPD0JZ Removal of Synthetic Substitute from Left Knee Joint, Open Approach (ICD-10-PCS; principal; 2018-03-04 13:15)
DX: T84.033A Mechanical loosening of internal left knee prosthetic joint, initial encounter (principal); I69.954 Hemiplegia and hemiparesis following unspecified cerebrovascular disease affecting left non-dominant side; I25.10 Atherosclerotic heart disease of native coronary artery without angina pectoris; I12.9 Hypertensive chronic kidney disease with stage 1 through stage 4 chronic kidney disease, or unspecified chronic kidney disease; E11.21 Type 2 diabetes mellitus with diabetic nephropathy; Z79.4 Long term (current) use of insulin; N18.3 Chronic kidney disease, stage 3 (moderate); G25.81 Restless legs syndrome; G20 Parkinson's disease; Z87.891 Personal history of nicotine dependence; E78.5 Hyperlipidemia, unspecified; J45.909 Unspecified asthma, uncomplicated; E83.42 Hypomagnesemia; M10.9 Gout, unspecified
CPT/HCPCS: 36415; 73560; 80053; 82550; 82553; 82565; 82962; 83735; 84484; 85014; 85018; 85025; 87070; 87075; 87205; 93005; 94760; 94762; 97110; 97116; 97162; 97530; C1776; C9290; J2250; J2274; J2405; J2704; J3010; J3370; J3475

== ENCOUNTER → 2025-02-22 12:29 | Outpatient (CLI) | payer MEDICARE, OTHER, SELFPAY ==
[2018-03-04 19:22] VITALS: BMI 33.3
== END ==
PROVIDERS: PCP Internal Medicine; Referring Provider Internal Medicine; Visit Provider Orthopaedic Surgery Adult Reconstructive Orthopaedic Surgery
DX: Z96.652 Presence of left artificial knee joint (principal); G20.A1 Parkinson's disease without dyskinesia, without mention of fluctuations
CPT/HCPCS: 36415; 85651; 86140